=== PATIENT | female | born 1960 | race Caucasian/White ===

== ENCOUNTER 2022-05-27 04:07 | Day surgery (SDC) | payer OTHER ==
[2022-05-25 11:55] VITALS: BMI 50.6
[2022-05-27] MEDS ORDERED: ONDANSETRON 4 MG/2 ML VIAL IVPUSH PRN (13:04)
[2022-05-27] MEDS ORDERED: oxyCODONE HCL 5 MG TABLET PO PRN (13:04)
[2022-05-27] MEDS ORDERED: LACTATED RINGERS SOLUTION 1,000 ML IV SCH (13:15)
[2022-05-27] MEDS ORDERED: PROPOFOL 20 ML ONE ×2 (13:18)
[2022-05-27] MEDS ORDERED: MIDAZOLAM HCL 2 MG/2 ML SINGLE DOSE VIAL ONE (13:18)
[2022-05-27] MEDS ORDERED: LIDOCAINE HCL/PF 2% SDV 5ML VIAL ONE (13:18)
[2022-05-27] MEDS ORDERED: ceFAZolin SODIUM 1 GM VIAL ONE (13:34)
[2022-05-27] MEDS ORDERED: ceFAZolin SODIUM 1 GM VIAL IVPB ONE (13:43)
[2022-05-27] MEDS ORDERED: KETOROLAC TROMETHAMINE 30 MG/1 ML VIAL ONE (13:55)
[2022-05-27] MEDS ORDERED: ACETAMINOPHEN 325 MG TABLET (FP) PO PRN (14:51)
[2022-05-27] MEDS ORDERED: IBUPROFEN 400 MG TABLET (FP) PO PRN (14:51)
[2022-05-27 15:43] VITALS: RESP 16
[2022-05-27 16:25] VITALS: BP 110/72; PULSE 70; TEMP 97
== END 2022-05-27 16:30 | disposition home or self-care (01) ==
LOC: JASU-SURG 04:07
PROVIDERS: ATTEND Obstetrics & Gynecology
PROC: 0UDB7ZX Extraction of Endometrium, Via Natural or Artificial Opening, Diagnostic (ICD-10-PCS; principal; 2022-05-27 13:46)
PROC: 0UJD8ZZ Inspection of Uterus and Cervix, Via Natural or Artificial Opening Endoscopic (ICD-10-PCS; 2022-05-27 13:46)
DX: N95.0 Postmenopausal bleeding (principal)
CPT/HCPCS: 88305-TC; 94760